=== PATIENT | female | born 1960 | race Caucasian/White ===

== ENCOUNTER 2020-06-20 11:56 | Day surgery (SDC) | payer OTHER ==
[~2020-06-20] VITALS: Ht 157.5 cm; Wt 71.3 kg
[2020-06-20] MEDS ORDERED: VITAMIN D310 MC4 PO (12:08)
[2020-06-20] MEDS ORDERED: CALCIUM500 MG PO (12:09)
[2020-06-20] MEDS ORDERED: VITAMIN B COMP1 EACH PO (12:09)
[2020-06-20] MEDS ORDERED: ACETAMINOPHEN-1 EAC1 PO (12:10)
[2020-06-20] MEDS ORDERED: PROAIR HFA8.5 GM INH (12:10)
[2020-06-20] MEDS ORDERED: ZYRTEC-D TABLE1 EACH PO (12:10)
[2020-06-20] MEDS ORDERED: ESTRADIOL0.5 MG PO (12:11)
--- NOTE | 2020-06-20 13:34 | NUR ---
06/20/20 1334 Sheets,Serene 1329 PT ARRIVED TO PACU ON 3L VIA NC. VSS. PT AWAKE AND TALKING TO RN. 1331 O2 REMOVED AND PT ROLLED TO BACK.
--- NOTE | 2020-06-20 15:17 | OR ---
[facility] [address], [place] [address] Signed DATE OF OPERATION: 06/20/2020 SURGEON: Hillary Oliveros MD PREOPERATIVE DIAGNOSIS: Colon screening. POSTOPERATIVE DIAGNOSIS: Normal colon to cecum. PROCEDURE: Total colonoscopy to cecum. ANESTHESIA: Intravenous sedation, fentanyl 100 mcg and Versed 4 mg. INDICATIONS: This 60-year-old white woman is a patient of NILE Valencia and Dr. Mague Tapia. She is referred for screening colonoscopy, having never undergone the procedure before. She has no symptoms of bleeding, diarrhea, or constipation and no family history of colon cancer that she is aware of. She understands the risks of bleeding, infection, and perforation related to colonoscopy and wished to proceed. FINDINGS: The prep was excellent. Complete colonoscopy was undertaken to the cecum without question. Appendiceal orifice was well identified. There were no signs of polyps, diverticular formation, colitis, or cancer. DESCRIPTION OF PROCEDURE: The patient was brought to the endoscopy suite and placed in lateral decubitus position given intravenous sedation to the point of slurred speech and nystagmus. Digital rectal examination was normal. An Olympus video colonoscope was passed into the rectum and manipulated throughout the colon, ultimately intubating the cecum. The ileocecal valve and appendiceal orifice were normal. The scope was withdrawn from that point. Examination throughout showed no sign of colitis, polyps, diverticular formation, or other abnormality. Retroflexed view of the rectum was normal. Scope was removed. The patient was taken to the recovery room in good condition. Electronically Signed By: HILLARY OLIVEROS MD 06/20/20 1517 PATIENT NAME: TONY GAMBOA OPERATIVE REPORT DATE OF : 62 REPORT #: [id number] PHYSICIAN: HILLARY OLIVEROS MD PCP: ZINA VITAL PAC REPORT IS CONFIDENTIAL AND NOT TO BE RELEASED WITHOUT AUTHORIZATION [facility] [address], [place] [address] Signed CONCLUDING DIAGNOSIS: Normal colon to cecum. PLAN: Recommend repeat colonoscopy in 10 years or sooner if clinically indicated. She will return to the ongoing care of NILE Valencia and Dr. Mague Tapia. MD MELVIN Wiggins/MODL /[id number] cc: Mague Tapia MD Copies: MAGUE TAPIA MD ~ Electronically Signed By: HILLARY OLIVEROS MD 06/20/20 1517 PATIENT NAME: TONY GAMBOA OPERATIVE REPORT DATE OF : 62 REPORT #: [id number] PHYSICIAN: HILLARY OLIVEROS MD PCP: ZINA VITAL PAC REPORT IS CONFIDENTIAL AND NOT TO BE RELEASED WITHOUT AUTHORIZATION
== END 2020-06-20 14:00 | disposition home or self-care (01) ==
LOC: OPS 11:56 → DS 13:00 → OPS 13:00
PROVIDERS: ATTEND Surgery
PROC: 0DJD8ZZ Inspection of Lower Intestinal Tract, Via Natural or Artificial Opening Endoscopic (ICD-10-PCS; principal; 2020-06-20 13:00)
DX: Z12.11 Encounter for screening for malignant neoplasm of colon (principal); J45.909 Unspecified asthma, uncomplicated; M48.00 Spinal stenosis, site unspecified; Z91.013 Allergy to seafood; Z79.899 Other long term (current) drug therapy; Z90.49 Acquired absence of other specified parts of digestive tract
CPT/HCPCS: 99153; G0500; J2250; J3010